=== PATIENT | female | born 1995 | race Caucasian/White ===

== ENCOUNTER 2017-09-01 09:20 | Inpatient (IN) | payer OTHER ==
[2017-09-01] MEDS ORDERED: ONDANSETRON 4 MG/2 ML VIAL ONE (09:41)
[2017-09-01] MEDS ORDERED: ONDANSETRON 4 MG/2 ML VIAL IVP ONE (09:43)
[2017-09-01] MEDS ORDERED: NS 1,000 ML IV ONE (09:45)
[2017-09-01] MEDS ORDERED: HYDROmorphONE/DILAUDID 1 MG/ML INJ IVP ONE (09:55)
[2017-09-01] MEDS ORDERED: HYDROmorphONE/DILAUDID 1 MG/ML INJ ONE (09:55)
--- NOTE | 2017-09-01 09:59 | EDPHY ---
H & P Stated Complaint: R flank pain x 2 days, nausea,chills Time Seen by Provider: 09/01/17 09:40 HPI/ROS: Chief Complaint: Back pain, fevers, chills HPI: 22-year-old woman presenting with 2 days of worsening right-sided flank pain which became significantly worse this morning. Has had nausea vomiting. Has had some subjective fevers or chills. Patient also had symptoms of urinary urgency and frequency for the last several days. She does have a history recurrent urinary tract infections in the past. Last menstrual. Just ended 2 days ago. She has never been . No history of STI. She has been taking ibuprofen without any relief. ROS: 10 point Review of Systems is negative except as noted in the HPI. PMH: Urinary tract infections Social History: No smoking, occasional alcohol, no recreational drug use Family History: non-contributory Physical Exam: Gen: Awake, Alert, uncomfortable appearing HEENT: Nose: no rhinorrhea Eyes: PERRLA, EOMI Mouth: Moist mucosa Neck: Supple, no JVD Chest: nontender, lungs clear to auscultation Heart: S1, S2 normal, no murmur Abd: Soft, non-tender, no guarding Back: Marked right CVA tenderness to percussion, no midline tenderness Ext: no edema, non-tender Skin: no rash Neuro: CN II-XII intact, Sensation grossly intact, Strength 5/5 in bilateral upper and lower extremities - Personal History LMP (Females 10-55): 1-7 Days Ago Current Tetanus/Diphtheria Vaccine: Unsure Current Tetanus Diphtheria and Acellular Pertussis (TDAP): Unsure - Medical/Surgical History Hx Asthma: No Hx Chronic Respiratory Disease: No Hx Diabetes: No Hx Cardiac Disease: No Hx Renal Disease: No Hx Cirrhosis: No Hx Alcoholism: No Hx HIV/AIDS: No Hx Splenectomy or Spleen Trauma: No Other PMH: freq utis - Social History Smoking Status: Never smoked Constitutional: Initial Vital Signs Temperature (C) 37.8 C 09/01/17 09:23 Heart Rate 118 H 09/01/17 09:23 Respiratory Rate 28 H 09/01/17 09:23 Blood Pressure 144/90 H 09/01/17 09:23 O2 Sat (%) 100 09/01/17 09:23 O2 Delivery Mode Room Air Allergies/Adverse Reactions: No Known Allergies Allergy (Unverified 09/01/17 09:23) Home Medications: Medication Instructions Recorded Ortho Tri-Cyclen 28 Tablet 09/01/17 Medical Decision Making ED Course/Re-evaluation: 22-year-old with history of recurrent urinary tract infections presenting with symptoms consistent with pyelonephritis. She has leukocytosis. She she is afebrile here however she has been taking ibuprofen regularly. She is in significant discomfort is required 1 mg of Dilaudid. She still having some pain after this. Given the severity of her symptoms and her leukocytosis with significant left shift she will continue to require IV antibiotics. I have given her 1 g of ceftriaxone here. She will be admitted to the hospitalist for further care. - Data Points Laboratory Results: Laboratory Results 09/01/17 09:35 09/01/17 09:35 09/01/17 09/01/17 09/01/17 09:35 09:35 09:35 WBC 15.24 10^3/uL H 10^3/uL (3.80-9.50) RBC 4.56 10^6/uL 10^6/uL (4.18-5.33) Hgb 14.3 g/dL g/dL (12.6-16.3) Hct 39.8 % % (38.0-47.0) MCV 87.3 fL fL (81.5-99.8) MCH 31.4 pg pg (27.9-34.1) MCHC 35.9 g/dL g/dL (32.4-36.7) RDW 12.2 % % (11.5-15.2) Plt Count 263 10^3/uL 10^3/uL (150-400) MPV 9.9 fL fL (8.7-11.7) Neut % (Auto) 93.2 % H % (39.3-74.2) Lymph % (Auto) 3.5 % L % (15.0-45.0) [place] % (Auto) 2.4 % L % (4.5-13.0) Eos % (Auto) 0.1 % L % (0.6-7.6) Baso % (Auto) 0.3 % % (0.3-1.7) Nucleat RBC Rel Count 0.0 % % (0.0-0.2) Absolute Neuts (auto) 14.21 10^3/uL H 10^3/uL (1.70-6.50) Absolute Lymphs (auto) 0.54 10^3/uL L 10^3/uL (1.00-3.00) Absolute Monos (auto) 0.36 10^3/uL 10^3/uL (0.30-0.80) Absolute Eos (auto) 0.01 10^3/uL L 10^3/uL (0.03-0.40) Absolute Basos (auto) 0.04 10^3/uL 10^3/uL (0.02-0.10) Absolute Nucleated RBC 0.00 10^3/uL 10^3/uL (0-0.01) Immature Gran % 0.5 % % (0.0-1.1) Immature Gran # 0.08 10^3/uL 10^3/uL (0.00-0.10) Sodium 141 mEq/L mEq/L (134-144) Potassium 3.8 mEq/L mEq/L (3.5-5.2) Chloride 103 mEq/L mEq/L (97-110) Carbon Dioxide 20 mEq/l L mEq/l (22-31) Anion Gap 18 mEq/L H mEq/L (8-16) BUN 12 mg/dL mg/dL (7-23) Creatinine 0.8 mg/dL mg/dL (0.6-1.0) Estimated GFR > 60 Glucose 98 mg/dL mg/dL (70-100) Calcium 9.9 mg/dL mg/dL (8.5-10.4) Beta HCG, Qual NEGATIVE Urine Color Urine Appearance Urine pH Ur Specific [place] Urine Protein Urine Ketones Urine Blood Urine Nitrate Urine Bilirubin Urine Urobilinogen Ur Leukocyte Esterase Urine RBC Urine WBC Ur Epithelial Cells Urine Bacteria Urine Mucus Urine Glucose 09/01/17 09:30 WBC RBC Hgb Hct MCV MCH MCHC RDW Plt Count MPV Neut % (Auto) Lymph % (Auto) [place] % (Auto) Eos % (Auto) Baso % (Auto) Nucleat RBC Rel Count Absolute Neuts (auto) Absolute Lymphs (auto) Absolute Monos (auto) Absolute Eos (auto) Absolute Basos (auto) Absolute Nucleated RBC Immature Gran % Immature Gran # Sodium Potassium Chloride Carbon Dioxide Anion Gap BUN Creatinine Estimated GFR Glucose Calcium Beta HCG, Qual Urine Color YELLOW Urine Appearance HAZY Urine pH 7.0 (5.0-7.5) Ur Specific [place] 1.010 (1.002-1.030) Urine Protein 1+ H (NEGATIVE) Urine Ketones NEGATIVE (NEGATIVE) Urine Blood 3+ H (NEGATIVE) Urine Nitrate NEGATIVE (NEGATIVE) Urine Bilirubin NEGATIVE (NEGATIVE) Urine Urobilinogen NEGATIVE EU EU (0.2-1.0) Ur Leukocyte Esterase 3+ H (NEGATIVE) Urine RBC 15-25 /hpf H /hpf (0-3) Urine WBC 50-182 /hpf H /hpf (0-3) Ur Epithelial Cells TRACE /lpf /lpf (NONE-1+) Urine Bacteria 2+ /hpf H /hpf (NONE SEEN) Urine Mucus TRACE /lpf /lpf (NONE-1+) Urine Glucose NEGATIVE (NEGATIVE) Medications Given: Discontinued Medications Hydromorphone HCl (Dilaudid) 1 mg IVP EDNOW ONE Stop: 09/01/17 09:56 Last Admin: 09/01/17 09:57 Dose: 1 mg Ceftriaxone Sodium/Dextrose (Rocephin 1 Gm (Premix)) 50 mls @ 100 mls/hr IV EDNOW ONE PRN Reason: Protocol Stop: 09/01/17 10:51 Last Admin: 09/01/17 10:31 Dose: 50 mls Ondansetron HCl (Zofran) 4 mg IVP EDNOW ONE Stop: 09/01/17 09:44 Last Admin: 09/01/17 09:47 Dose: 4 mg Departure - Departure Disposition: [facility]patient Acute Clinical Impression: Acute pyelonephritis Condition: Fair
[2017-09-01 10:01] LABS: % IMMATURE GRANULYOCYTES 0.5 % (0.0-1.1); ABSOLUTE IMMATURE GRANULOCYTES 0.08 10^3/uL (0.00-0.10); ADD DIFF? NO; ADD MORPH? NO; ADD SCAN? NO; ATYPICAL LYMPHOCYTE FLAG 0 (0-99); FRAGMENT RBC FLAG 0 (0-99); HEMATOCRIT 39.8 % (38.0-47.0); HEMOGLOBIN 14.3 g/dL (12.6-16.3); LEFT SHIFT FLG 0 (0-99); LIPEMIA HEMOLYSIS FLAG 90 (0-99); MEAN CELL HEMOGLOBIN 31.4 pg (27.9-34.1); MEAN CELL HEMOGLOBIN CONCENTR. 35.9 g/dL (32.4-36.7); MEAN CELL VOLUME 87.3 fL (81.5-99.8); MEAN PLATELET VOLUME 9.9 fL (8.7-11.7); PLATELET CLUMPS FLAG 0 (0-99); PLATELET COUNT 263 10^3/uL (150-400); RED BLOOD CELL COUNT 4.56 10^6/uL (4.18-5.33); RED CELL DISTRIBUTION WIDTH 12.2 % (11.5-15.2)
[2017-09-01 10:05] LABS: COLOR YELLOW; LEUKOCYTE ESTERASE,URINE 3+ (NEGATIVE); NITRITE,URINE NEGATIVE (NEGATIVE)
[2017-09-01 10:08] LABS: ANION GAP 18 mEq/L (8-16); CALCIUM 9.9 mg/dL (8.5-10.4); CARBON DIOXIDE 20 mEq/l (22-31); CHLORIDE 103 mEq/L (97-110); CREATININE 0.8 mg/dL (0.6-1.0); GLOMERULAR FILTRATION RATE > 60; GLUCOSE 98 mg/dL (70-100); POTASSIUM 3.8 mEq/L (3.5-5.2); SODIUM 141 mEq/L (134-144)
[2017-09-01 10:10] LABS: BACTERIA 2+ /hpf (NONE SEEN); MUCUS TRACE /lpf (NONE-1+); RBC,URINE 15-25 /hpf (0-3); WBC,URINE 50-182 /hpf (0-3)
[2017-09-01] MEDS ORDERED: HYDROmorphone HCL/NS/PF 0.4 MG/2 ML SYR IVP ONE (13:30)
[2017-09-01] MEDS ORDERED: HYDROmorphONE/DILAUDID 1 MG/ML INJ IVP PRN (14:05)
[2017-09-01] MEDS ORDERED: ACETAMINOPHEN 325 MG TAB PO PRN (14:06)
[2017-09-01] MEDS ORDERED: ONDANSETRON 4 MG/2 ML VIAL IVP PRN (14:06)
[2017-09-01] MEDS ORDERED: ONDANSETRON DISINTEGRATING 4 MG TAB PO PRN (14:06)
--- NOTE | 2017-09-01 14:18 | PDGENHP ---
History and Physical - Chief Complaint Chills, right flank pain - History of Present Illness 22-year-old woman presenting with 2 days of worsening right-sided flank pain which became significantly worse this morning. Has had nausea vomiting. Has had some subjective fevers or chills. Patient also had symptoms of urinary urgency and frequency for the last several days. She does have a history recurrent urinary tract infections in the past. Last menstrual. Just ended 2 days ago. Hcg negative. No history of STI. In the E.D. UA + and she is being admitted for right sided pyelonephritis.She was started on Rocephin and given Zofran, Dilaudid, IVF. BCX were not obtained. She is still in pain. Some nause. No abd pain. NO CP or SOB. No leg swelling PMH: Urinary tract infections Social History: No smoking, occasional alcohol, no recreational drug use Family History: non-contributory History Information - Allergies/Home Medication List Allergies/Adverse Reactions: No Known Allergies Allergy (Unverified 09/01/17 09:23) Home Medications: Ibuprofen [Motrin (*)] 400 mg PO Q4-6PRN PRN 09/01/17 [Last Taken Unknown] Norgestimate-Ethinyl Estradiol [Norg-Ethin Estra 0.25-0.035 mg] 1 tab PO DAILY 09/01/17 [Last Taken 08/31/17] I have personally reviewed and updated: medical history, social history - Social History Smoking Status: Never smoked Review of Systems Review of Systems: ROS: 10pt was reviewed & negative except for what was stated in HPI & below Physical Exam Physical Exam: Temp Pulse Resp BP Pulse Ox 36.7 C 76 16 114/66 94 09/01/17 12:59 09/01/17 12:59 09/01/17 12:59 09/01/17 12:59 09/01/17 12:59 Constitutional: no apparent distress, appears nourished Eyes: PERRL, EOMI Ears, Nose, Mouth, Throat: moist mucous membranes, hearing normal, ears appear normal Cardiovascular: No JVD, No edema Respiratory: no respiratory distress Gastrointestinal: soft, non-tender abdomen, No tenderness, No guarding, No distension Skin: warm Musculoskeletal: No generalized weakness (right cva tenderness) Neurologic: AAOx3 Psychiatric: interacting appropriately, not anxious, not encephalopathic Lab Data & Imaging Review 09/01/17 09:35 09/01/17 09:35 WBC 15.24 10^3/uL (3.80-9.50) H 09/01/17 09:35 RBC 4.56 10^6/uL (4.18-5.33) 09/01/17 09:35 Hgb 14.3 g/dL (12.6-16.3) 09/01/17 09:35 Hct 39.8 % (38.0-47.0) 09/01/17 09:35 MCV 87.3 fL (81.5-99.8) 09/01/17 09:35 MCH 31.4 pg (27.9-34.1) 09/01/17 09:35 MCHC 35.9 g/dL (32.4-36.7) 09/01/17 09:35 RDW 12.2 % (11.5-15.2) 09/01/17 09:35 Plt Count 263 10^3/uL (150-400) 09/01/17 09:35 MPV 9.9 fL (8.7-11.7) 09/01/17 09:35 Neut % (Auto) 93.2 % (39.3-74.2) H 09/01/17 09:35 Lymph % (Auto) 3.5 % (15.0-45.0) L 09/01/17 09:35 [place] % (Auto) 2.4 % (4.5-13.0) L 09/01/17 09:35 Eos % (Auto) 0.1 % (0.6-7.6) L 09/01/17 09:35 Baso % (Auto) 0.3 % (0.3-1.7) 09/01/17 09:35 Nucleat RBC Rel Count 0.0 % (0.0-0.2) 09/01/17 09:35 Absolute Neuts (auto) 14.21 10^3/uL (1.70-6.50) H 09/01/17 09:35 Absolute Lymphs (auto) 0.54 10^3/uL (1.00-3.00) L 09/01/17 09:35 Absolute Monos (auto) 0.36 10^3/uL (0.30-0.80) 09/01/17 09:35 Absolute Eos (auto) 0.01 10^3/uL (0.03-0.40) L 09/01/17 09:35 Absolute Basos (auto) 0.04 10^3/uL (0.02-0.10) 09/01/17 09:35 Absolute Nucleated RBC 0.00 10^3/uL (0-0.01) 09/01/17 09:35 Immature Gran % 0.5 % (0.0-1.1) 09/01/17 09:35 Immature Gran # 0.08 10^3/uL (0.00-0.10) 09/01/17 09:35 Sodium 141 mEq/L (134-144) 09/01/17 09:35 Potassium 3.8 mEq/L (3.5-5.2) 09/01/17 09:35 Chloride 103 mEq/L (97-110) 09/01/17 09:35 Carbon Dioxide 20 mEq/l (22-31) L 09/01/17 09:35 Anion Gap 18 mEq/L (8-16) H 09/01/17 09:35 BUN 12 mg/dL (7-23) 09/01/17 09:35 Creatinine 0.8 mg/dL (0.6-1.0) 09/01/17 09:35 Estimated GFR > 60 09/01/17 09:35 Glucose 98 mg/dL (70-100) 09/01/17 09:35 Calcium 9.9 mg/dL (8.5-10.4) 09/01/17 09:35 Beta HCG, Qual NEGATIVE 09/01/17 09:35 Urine Color YELLOW 09/01/17 09:30 Urine Appearance HAZY 09/01/17 09:30 Urine pH 7.0 (5.0-7.5) 09/01/17 09:30 Ur Specific [place] 1.010 (1.002-1.030) 09/01/17 09:30 Urine Protein 1+ (NEGATIVE) H 09/01/17 09:30 Urine Ketones NEGATIVE (NEGATIVE) 09/01/17 09:30 Urine Blood 3+ (NEGATIVE) H 09/01/17 09:30 Urine Nitrate NEGATIVE (NEGATIVE) 09/01/17 09:30 Urine Bilirubin NEGATIVE (NEGATIVE) 10/29/17 09:30 Urine Urobilinogen NEGATIVE EU (0.2-1.0) 09/01/17 09:30 Ur Leukocyte Esterase 3+ (NEGATIVE) H 09/01/17 09:30 Urine RBC 15-25 /hpf (0-3) H 09/01/17 09:30 Urine WBC 50-182 /hpf (0-3) H 09/01/17 09:30 Ur Epithelial Cells TRACE /lpf (NONE-1+) 09/01/17 09:30 Urine Bacteria 2+ /hpf (NONE SEEN) H 09/01/17 09:30 Urine Mucus TRACE /lpf (NONE-1+) 09/01/17 09:30 Urine Glucose NEGATIVE (NEGATIVE) 09/01/17 09:30 Assessment & Plan Assessment: #Acute pyelonephritis #Fever Plan: Rocephin IVF pain mgmt antiemetics await urine cx check bcx SCD full code
[2017-09-01] MEDS: IBUPROFEN 200 MG TAB PO PRN ×2 (14:38→18:36)
[2017-09-01] MEDS: HYDROmorphone HCL/NS/PF 0.4 MG/2 ML SYR IVP PRN ×2 (14:39→16:40)
[2017-09-01] MEDS: oxyCODONE IR 5 MG TAB PO PRN (19:50)
[2017-09-02] MEDS: IBUPROFEN 200 MG TAB PO PRN ×3 (00:32→14:44)
[2017-09-02] MEDS: oxyCODONE IR 5 MG TAB PO PRN ×2 (04:12→20:59)
[2017-09-02 04:52] LABS: % IMMATURE GRANULYOCYTES 0.1 % (0.0-1.1); ABSOLUTE IMMATURE GRANULOCYTES 0.01 10^3/uL (0.00-0.10); ADD DIFF? NO; HEMATOCRIT 35.8 % (38.0-47.0); HEMOGLOBIN 11.9 g/dL (12.6-16.3); MEAN CELL HEMOGLOBIN 30.1 pg (27.9-34.1); MEAN CELL HEMOGLOBIN CONCENTR. 33.2 g/dL (32.4-36.7); MEAN CELL VOLUME 90.6 fL (81.5-99.8); MEAN PLATELET VOLUME 9.9 fL (8.7-11.7); PLATELET COUNT 175 10^3/uL (150-400); RED BLOOD CELL COUNT 3.95 10^6/uL (4.18-5.33); RED CELL DISTRIBUTION WIDTH 12.3 % (11.5-15.2)
[2017-09-02 04:53] LABS: ADD MORPH? NO; ADD SCAN? NO; ATYPICAL LYMPHOCYTE FLAG 0 (0-99); FRAGMENT RBC FLAG 0 (0-99); LEFT SHIFT FLG 0 (0-99); LIPEMIA HEMOLYSIS FLAG 80 (0-99); PLATELET CLUMPS FLAG 0 (0-99)
[2017-09-02 05:11] LABS: ANION GAP 11 mEq/L (8-16); CALCIUM 8.8 mg/dL (8.5-10.4); CARBON DIOXIDE 23 mEq/l (22-31); CHLORIDE 106 mEq/L (97-110); CREATININE 0.8 mg/dL (0.6-1.0); GLOMERULAR FILTRATION RATE > 60; GLUCOSE 89 mg/dL (70-100); POTASSIUM 3.6 mEq/L (3.5-5.2); SODIUM 140 mEq/L (134-144)
[2017-09-02] MEDS: HYDROmorphone HCL/NS/PF 0.4 MG/2 ML SYR IVP PRN ×3 (06:21→16:31)
[2017-09-02] MEDS: NORGESTIMATE ETHINYL ESTRADIOL PO SCH (09:28)
[2017-09-02] MEDS: NS 1,000 ML IV SCH (16:35)
--- NOTE | 2017-09-02 16:42 | HOSPPROG ---
Hospitalist Progress Note Assessment/Plan: * Acute pyelonephritis -still not improving - N/V/flank pain continues -check renal US -await urine culture -continue IV ceftriaxone Subjective: no better Objective: Vital Signs Temp Pulse Resp BP Pulse Ox 37.5 C 92 16 126/82 H 95 09/02/17 09:11 09/02/17 09:11 09/02/17 09:11 09/02/17 09:11 09/02/17 09:11 Laboratory Results 09/02/17 04:45 09/02/17 04:45 09/01/17 09/02/17 09/03/17 05:59 05:59 05:59 Intake Total 350 Output Total 500 Balance 350 -500 Still using frequent IV dilaudid - when it wears of her pain is back where it was before - Physical Exam Constitutional: no apparent distress, appears nourished, not in pain Cardiovascular: regular rate and rhythym, no murmur, rub, or gallop Respiratory: no respiratory distress, no rales or rhonchi, clear to auscultation Gastrointestinal: normoactive bowel sounds, soft, non-tender abdomen, no palpable masses Skin: no rashes or abrasions, no fluctuance, no induration Neurologic: AAOx3, sensation intact bilaterally Psychiatric: interacting appropriately, not anxious, not encephalopathic, thought process linear ICD10 Worksheet Patient Problems: Problems Problem Status Onset Acute pyelonephritis Acute
[2017-09-03 04:00] VITALS: O2SAT 95
[2017-09-03] MEDS: oxyCODONE IR 5 MG TAB PO PRN (05:40)
[2017-09-03] MEDS: NS 1,000 ML IV SCH (05:42)
[2017-09-03 07:43] VITALS: BP 118/59; PULSE 69; RESP 16; TEMP 98.8
[2017-09-03] MEDS ORDERED: FLU VACC QS 2017-18 (3YR+)/PF 0.5 ML SYR (FLUARIX QUAD) IM ONE (07:44)
--- NOTE | 2017-09-03 08:55 | PDMN ---
Medical Necessity Medical necessity: M300 pyelonephritis not improving after 24 hours IV ABX, cont pain., with IV pain meds, IV Zofran, further monitoring needed
[2017-09-03] MEDS: NORGESTIMATE ETHINYL ESTRADIOL PO SCH (09:21)
--- NOTE | 2017-09-03 09:55 | PDDCSUM ---
Discharge Summary Discharge Summary: Dates of service 09/02-09/03/17 consultations: None procedures: abd us Discharge dx: # acute pyelonephritis: treated with ctx in house, cultures negative but only obtained after starting abx, will dc with 10 day total course completed with levofloxacin # leukocytosis: in setting of above, improving # n/v/abdominal pain: continued at time of dc and discharged home with short course of pain/nausea medications dc home f/u with pcp > 35 min spent in dc more than half in counseling patient and her mother regarding f/u care plans
--- NOTE | 2017-09-03 10:35 | ASMTCASEMG ---
Living Arrangements What is your living Answers: With Other (Not Family) arrangement? Who do you live with? Type Of Residence What kind of residence do Answers: Apartment you live in? Case Management Evaluation Functional: Able to Answers: Yes return Home with Prior Level of Function/Care Discharge Plan Comments Coordination Status Comments Notes: Patient a student at [employer]. Patient will d/c with parent and then return to when ready. Case management will follow. Date Signed: 09/03/2017 10:34 AM Electronically Signed By:BENOIT Hardy
--- NOTE | 2017-09-03 10:39 | ASDISCHSUM ---
Discharge Information Plan Status:Home with No Needs Medically Cleared to Leave:09/03/2017 Discharge Date:09/03/2017 CM D/C Disposition:Home, Routine, Self-Care ADT D/C Disposition:Home, Routine, Self-Care Projected Discharge Date:09/03/2017 12:00 PM Transportation at D/C:Family Discharge Delay Reason: Follow-Up Date:09/03/2017 12:00 PM Discharge Slot: Final Diagnosis:Pyleonephritis Placement Information Patient Contact Information Contact Name:SWETA Relationship:Mother Address:[address] Work Phone: City:[facility] [facility] Phone: State/Zip Code:[place] [address] Email: Financial Information Financial Class:[employer] Primary Plan Desc:DHARMESH GIRALDO [facility] Primary Plan Number:[id number] Secondary Plan Desc: Secondary Plan Number: Assessment Information [facility] Initial CM Assessment Living Arrangements What is your living Answers: With Other (Not Family) arrangement? Who do you live with? Type Of Residence What kind of residence do Answers: Apartment you live in? Case Management Evaluation Functional: Able to Answers: Yes return Home with Prior Level of Function/Care Discharge Plan Comments Coordination Status Comments Notes: Patient a student at [employer]. Patient will d/c with parent and then return to when ready. Case management will follow. Date Signed: 09/03/2017 10:34 AM Electronically Signed By:BENOIT Hardy [facility] CM Progress Note CM Note CM Note Notes: Patient discharging home with her mother until the weekend and then plans to return to her classes at . Requested C/M to contact [place] [facility] [employer] so they can send an email to involved professors. [place] office notified. No additional Case management needs apparent at this time. Date Signed: 09/03/2017 10:38 AM Electronically Signed By:BENOIT Hardy Intervention Information
--- NOTE | 2017-09-03 10:39 | ASMTCMCOM ---
CM Note CM Note Notes: Patient discharging home with her mother until the weekend and then plans to return to her classes at . Requested C/M to contact [place] office in arts and sciences so they can send an email to involved professors. [place] office notified. No additional Case management needs apparent at this time. Date Signed: 09/03/2017 10:38 AM Electronically Signed By:BENOIT Hardy
== END 2017-09-03 11:46 | disposition home or self-care (01) | DRG 690 ==
LOC: F1N 12:55 → OBSVTOIN 09-02 16:40
PROVIDERS: ADMIT Internal Medicine; ATTEND Internal Medicine
DX: N10 Acute pyelonephritis (principal)
CPT/HCPCS: 96365; G0008; G0378; J0696; J1170; J2405